=== PATIENT | female | born 1965 | race Caucasian/White ===

== ENCOUNTER 2017-02-23 18:37 | Emergency (ER) | payer MEDICAID ==
[2017-02-23] MEDS ORDERED: Silver Sulfadiazine 1% Crm 50 GM Tube TOP ONE (18:38)
[2017-02-23] MEDS ORDERED: Acetaminophen/oxyCODONE 325-5 MG Tab PO ONE (18:38)
[2017-02-23] MEDS ORDERED: HYDROmorphone 2 MG/ML SDV IM ONE (18:44)
[2017-02-23] MEDS ORDERED: Sodium Chloride 0.9% 10 ML Syringe FLUSH PRN (18:53)
[2017-02-23] MEDS ORDERED: HYDROmorphone 2 MG/ML SDV IVPUSH ONE ×2 (18:55→19:25)
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
[2017-02-23] MEDS ORDERED: Acetaminophen/oxyCODONE 325-5 MG Tab PO PRN (19:50)
== END 2017-02-23 20:30 | disposition home or self-care (01) ==
LOC: FB.ED 18:37
DX: T23.232A Burn of second degree of multiple left fingers (nail), not including thumb, initial encounter (principal); T23.202A Burn of second degree of left hand, unspecified site, initial encounter; Z88.0 Allergy status to penicillin; X06.2XXA Exposure to ignition of other clothing and apparel, initial encounter
CPT/HCPCS: 16020; 96374; 96376; 99283; A9270; J1170; J7050

== ENCOUNTER 2019-10-14 07:17 | Day surgery (SDC) | payer MEDICAID ==
[~2019-10-14 07:17] MED LIST: Lactated Ringers 1,000 ML IV SCH; Sodium Chloride 0.9% 10 ML Syringe FLUSH PRN
[2019-10-14] MEDS ORDERED: Propofol 200 MG/20 ML SDV IV ONE (07:18)
[2019-10-14] MEDS ORDERED: Lidocaine 1% PF 2 ML SDV INJECT ONE (07:18)
--- NOTE | 2019-10-14 09:13 | PCM.OPNOTE ---
- General Post-Op/Procedure Note Date of Surgery/Procedure: 10/14/19 Operative Procedure(s): c scope with bx Findings: sigmoid diverticulosis sigmoid polyp and rectal polyps x4 Pre Op Diagnosis: screening Post-Op Diagnosis: diverticulosis. colon polyps Anesthesia Technique: MAC Primary Surgeon: Laith Gifford Anesthesia Provider: Molina Guidry Pathology: colon and rectal polyps Complications: None Condition: Good Free Text/Narrative:: see dictation
--- NOTE | 2019-10-15 04:25 | OR ---
DATE OF OPERATION: 10/14/2019 SURGEON: Laith Gifford MD PROCEDURE PERFORMED: Colonoscopy with cold forceps biopsy. PREOPERATIVE DIAGNOSIS: Screening for colon cancer. POSTOPERATIVE DIAGNOSES: Sigmoid diverticulosis, rectal polyps x4, and sigmoid colon polyp x1. INDICATIONS FOR PROCEDURE: This is a 54-year-old white female referred for initial screening colonoscopy. INTRAOPERATIVE FINDINGS: Are as follows: The sigmoid colon appeared to have a hyperplastic polyp. Rectal, 3 of the 4 polyps appeared to be hyperplastic with one appearing to be adenomatous. Sigmoid colon had some mild diverticulosis. DESCRIPTION OF OPERATION: After an excellent IV sedation was administered, digital rectal exam was performed. No marked abnormality was noted. The flexible colonoscope was inserted and advanced to the cecum. Prep was excellent. The following findings were noted: Ascending colon, unremarkable. Transverse colon, unremarkable. Descending colon, unremarkable. Sigmoid, mild diverticulosis. Small hyperplastic-appearing lesion noted at the distal sigmoid colon, biopsied and obliterated with cold biopsy forceps. Rectum, mid rectum 3 hyperplastic-appearing polyps were encountered, these were biopsied with the cold biopsy forceps and submitted in 1 container, and approximately 3 mm distal to this point, there was a small 2 mm adenomatous-appearing polyp, which was also biopsied with cold biopsy forceps. The patient tolerated the procedure well, was taken to Recovery. Results will be sent to her via letter. /[id number] /MODL
== END 2019-10-14 09:54 | disposition home or self-care (01) ==
LOC: FB.SDS 07:17
PROVIDERS: ATTEND Surgery
DX: Z12.11 Encounter for screening for malignant neoplasm of colon (principal); K63.5 Polyp of colon; K62.1 Rectal polyp; K57.30 Diverticulosis of large intestine without perforation or abscess without bleeding; E03.9 Hypothyroidism, unspecified; Z79.899 Other long term (current) drug therapy; Z88.0 Allergy status to penicillin; Z90.49 Acquired absence of other specified parts of digestive tract
CPT/HCPCS: 88305; J2001; J2704; J7120

== ENCOUNTER 2020-11-02 18:20 | Emergency (ER) | payer MEDICAID ==
--- NOTE | 2020-11-02 18:40 | EDM.PDOC ---
ED HPI GENERAL MEDICAL PROBLEM - General Stated Complaint: RIGHT FLANK PAIN Time Seen by Provider: 11/02/20 18:39 Source of Information: Reports: Patient History Limitations: Reports: No Limitations - History of Present Illness INITIAL COMMENTS - FREE TEXT/NARRATIVE: 55-year-old female who reports onset of right upper quadrant and right flank abdominal pain 5 days ago. It was a sharp and stabbing type pain but it was intermittent and then it would come and last for a period of time and then go away. It did not seem to be brought on by anything and it did not seem to be made better or worse by eating. She had no nausea or vomiting associated with it. She had no dysuria or hematuria. Beginning approximately 24 hours ago she reports that the pain has been constant and it has been worsening with time. She also reports that she has lost her appetite and when she tried to eat this morning she felt very nauseated and did not eat. She has been able to drink liquids well. She is currently rating her pain as a 10/10. It is worse when she is sitting up and nothing really seems to make the pain better anymore. Pain remains a sharp and stabbing type pain. She has been having intermittent sweating but no measured fever and no chills. No trauma. There are no other associated signs or symptoms. There are no other modifying factors. Onset: Other (5 days ago and worse over the past 24 hours.) Duration: Getting Worse Location: Reports: Abdomen, Other (Right upper flank) Quality: Reports: Sharp, Stabbing Severity: Severe Improves with: Reports: None Worsens with: Reports: Other (Sitting up. Palpation.), Movement Context: Reports: Other (Above.) Associated Symptoms: Reports: No Other Symptoms (Except as above) Treatments SOLE LAYER: Reports: Other (see below) - Related Data Allergies Allergy/AdvReac Type Severity Reaction Status Date / Time Penicillins Allergy Anaphylactic Verified 10/14/19 07:59 Shock Home Meds: Home Meds Albuterol [Proventil HFA] 2 puff INH QID PRN 10/10/19 [History] Aspirin 81 mg PO DAILY 10/10/19 [History] Budesonide/Formoterol [Symbicort 160-4.5 MCG] 2 puff INH BID 10/10/19 [History] Escitalopram Oxalate [Lexapro] 20 mg PO DAILY 10/10/19 [History] Famotidine [Pepcid] 10 mg PO BEDTIME 10/10/19 [History] Levothyroxine [Synthroid] 100 mcg PO ACBREAKFAST 10/10/19 [History] Losartan [Cozaar] 100 mg PO DAILY 10/10/19 [History] Metoprolol Succinate [Toprol Xl] 100 mg PO DAILY 10/10/19 [History] atorvaSTATin Calcium [Lipitor] 20 mg PO DAILY 10/10/19 [History] cloNIDine HCL [Catapres] 0.1 mg PO DAILY 10/10/19 [History] hydroCHLOROthiazide [Hydrochlorothiazide] 25 mg PO DAILY 10/10/19 [History] Past Medical History Cardiovascular History: Reports: Hypertension Respiratory History: Reports: Asthma Genitourinary History: Reports: Urinary Incontinence Other Genitourinary History: OAB Neurological History: Reports: TIA Psychiatric History: Reports: Anxiety, Depression Endocrine/Metabolic History: Reports: Hypothyroidism, Obesity/BMI 30+ Other Immunologic History: LEUKEMOID REACTION - Past Surgical History GI Surgical History: Reports: Appendectomy Female Surgical History: Reports: Section, Hysterectomy, Tubal Ligation Social & Family History - Family History Family Medical History: No Pertinent Family History - Tobacco Use Tobacco Use Status *Q: Current Every Day Tobacco User - Caffeine Use Caffeine Use: Reports: Coffee, Tea - Alcohol Use Alcohol Use History: Yes Alcohol Use Frequency: Socially - Living Situation & Occupation Living situation: Reports: Occupation: Employed (Works at [employer]) ED ROS GENERAL - Review of Systems Review Of Systems: See Below Constitutional: Reports: Diaphoresis. Denies: Fever, Chills HEENT: Denies: Throat Pain, Throat Swelling Respiratory: Denies: Shortness of Breath, Pleuritic Chest Pain, Cough Cardiovascular: Denies: Chest Pain, Palpitations Endocrine: Denies: Fatigue GI/Abdominal: Reports: Abdominal Pain (Right upper quadrant), Nausea (Intermittently). Denies: Diarrhea, Vomiting : Reports: Flank Pain (On right upper). Denies: Dysuria, Hematuria Musculoskeletal: Denies: Back Pain, Leg Pain Skin: Reports: Diaphoresis. Denies: Rash Neurological: Denies: Confusion, Dizziness Hematologic/Lymphatic: Denies: Easy Bleeding, Easy Bruising ED EXAM, GI/ABD - Physical Exam Exam: See Below Exam Limited By: No Limitations General Appearance: Alert, WD/WN, Moderate Distress Eyes: Bilateral: Normal Appearance, EOMI Ears: Normal External Exam, Hearing Grossly Normal Nose: Normal Inspection, Normal Mucosa, No Blood Throat/Mouth: Normal Voice, No Airway Compromise, Other (Somewhat dry mucous membranes) Head: Atraumatic, Normocephalic Neck: Normal Inspection, Supple, Non-Tender, Full Range of Motion Respiratory/Chest: No Respiratory Distress, Lungs Clear, Normal Breath Sounds, No Accessory Muscle Use, Chest Non-Tender Cardiovascular: Normal Peripheral Pulses, Regular Rate, Rhythm, No Murmur GI/Abdominal Exam: Normal Bowel Sounds, Soft, Tender (In right upper quadrant and right flank) Back Exam: Normal Inspection, Full Range of Motion. No: CVA Tenderness (R), CVA Tenderness (L) Extremities: Normal Inspection, Normal Range of Motion, Non-Tender, No Pedal Edema, Normal Capillary Refill Neurological: Alert, Oriented, CN II-XII Intact, Normal Cognition, No Motor/Sensory Deficits Psychiatric: Normal Affect Skin Exam: Warm, Dry, Intact, Normal Color, No Rash Course - Orders/Labs/Meds Orders: Active Orders 24 hr Category Date Time Status CBC WITH AUTO DIFF [HEME] Stat Lab 11/02/20 18:40 Ordered COMPREHENSIVE METABOLIC PN,CMP [CHEM] Stat Lab 11/02/20 18:40 Ordered HCG QUALITATIVE,URINE [URCHEM] Stat Lab 11/02/20 18:40 Stop Req LIPASE [CHEM] Stat Lab 11/02/20 18:40 Ordered MAGNESIUM [CHEM] Stat Lab 11/02/20 18:41 Ordered Sodium Chloride 0.9% @ 150 MLS/HR (1000ml) Med 11/02/20 18:45 Ordered Sodium Chloride 0.9% [Normal Saline] 1,000 ml IV ASDIRECTED Sodium Chloride 0.9% [Normal Saline] 500 ml Med 11/02/20 18:41 Ordered IV .BOLUS Sodium Chloride 0.9% [Saline Flush] Med 11/02/20 18:40 Ordered 10 ml FLUSH ASDIRECTED PRN Peripheral IV Insertion Adult [OM.PC] Routine Oth 11/02/20 18:40 Ordered Medication Orders Sodium Chloride (Normal Saline) 1,000 mls @ 150 mls/hr IV ASDIRECTED NISHA Sodium Chloride (Normal Saline) 500 mls @ 999 mls/hr IV .BOLUS ONE Stop: 11/02/20 19:11 Sodium Chloride (Sodium Chloride 0.9% 10 Ml Syringe) 10 ml FLUSH ASDIRECTED PRN PRN Reason: Keep Vein Open Labs: Laboratory Tests 11/02/20 Range/Units 15:40 Urine Color Yellow (YELLOW) Urine Appearance Slightly cloudy (CLEAR) Urine pH 5.0 (5.0-6.5) Ur Specific [place] 1.020 (1.010-1.025) Urine Protein Negative (NEGATIVE) mg/dL Urine Glucose (UA) Normal (NORMAL) mg/dL Urine Ketones Negative (NEGATIVE) mg/dL Urine Occult Blood Moderate H (NEGATIVE) Urine Nitrite Negative (NEGATIVE) Urine Bilirubin Negative (NEGATIVE) Urine Urobilinogen Normal (NEGATIVE) mg/dL Ur Leukocyte Esterase Negative (NEGATIVE) Urine RBC 5-10 H (0-5) Urine WBC 0-5 (0-5) Ur Squamous Epith Cells Moderate H (NS,R,O) Urine Bacteria Few H (NS) Urine Mucus Few H (NS) Meds: Medications Generic Name Dose Route Start Last Admin Trade Name Freq PRN Reason Stop Dose Admin Sodium Chloride 1,000 mls @ 150 mls/hr 11/02/20 18:45 Normal Saline IV ASDIRECTED NISHA Sodium Chloride 500 mls @ 999 mls/hr 11/02/20 18:41 Normal Saline IV 11/02/20 19:11 .BOLUS ONE Sodium Chloride 10 ml 11/02/20 18:40 Sodium Chloride 0.9% 10 Ml Syringe FLUSH ASDIRECTED PRN Keep Vein Open Discontinued Medications Generic Name Dose Route Start Last Admin Trade Name Freq PRN Reason Stop Dose Admin Hydromorphone HCl 1 mg 11/02/20 18:42 Hydromorphone 2 Mg/Ml Sdv IVPUSH 11/02/20 18:43 ONETIME ONE Ondansetron HCl 4 mg 11/02/20 18:42 Ondansetron 4 Mg/2 Ml Sdv IVPUSH 11/02/20 18:43 ONETIME ONE - Re-Assessments/Exams Free Text/Narrative Re-Assessment/Exam: 11/02/20 19:15: I have ordered blood tests and urine tests. I have also ordered an IV to be established with normal saline to be given as a bolus and Dilaudid 1 mg and Zofran 4 mg to be given IV. Her laboratory tests are pending at this time. I will be turning the patient over to Dr. Heath at this time. Please see is note in regard to the patient's further clinical course and disposition. I have discussed this with the patient. Departure - Departure Time of Disposition: 19:15 Disposition: Still A Patient 30 Condition: Fair Clinical Impression: Flank pain Abdominal pain Qualifiers: Abdominal location: right upper quadrant Qualified Code(s): R10.11 - Right upper quadrant pain - Discharge Information - My Orders Last 24 Hours: My Active Orders 11/02/20 18:40 CBC WITH AUTO DIFF [HEME] Stat COMPREHENSIVE METABOLIC PN,CMP [CHEM] Stat HCG QUALITATIVE,URINE [URCHEM] Stat LIPASE [CHEM] Stat Sodium Chloride 0.9% [Saline Flush] 10 ml FLUSH ASDIRECTED PRN Peripheral IV Insertion Adult [OM.PC] Routine 11/02/20 18:41 MAGNESIUM [CHEM] Stat Sodium Chloride 0.9% [Normal Saline] 500 ml IV .BOLUS 11/02/20 18:45 Sodium Chloride 0.9% @ 150 MLS/HR (1000ml) Sodium Chloride 0.9% [Normal Saline] 1,000 ml IV ASDIRECTED - Assessment/Plan Last 24 Hours: My Active Orders 11/02/20 18:40 CBC WITH AUTO DIFF [HEME] Stat COMPREHENSIVE METABOLIC PN,CMP [CHEM] Stat HCG QUALITATIVE,URINE [URCHEM] Stat LIPASE [CHEM] Stat Sodium Chloride 0.9% [Saline Flush] 10 ml FLUSH ASDIRECTED PRN Peripheral IV Insertion Adult [OM.PC] Routine 11/02/20 18:41 MAGNESIUM [CHEM] Stat Sodium Chloride 0.9% [Normal Saline] 500 ml IV .BOLUS 11/02/20 18:45 Sodium Chloride 0.9% @ 150 MLS/HR (1000ml) Sodium Chloride 0.9% [Normal Saline] 1,000 ml IV ASDIRECTED
[2020-11-02] MEDS ORDERED: Sodium Chloride 0.9% 500 ML IV ONE (18:41)
[2020-11-02] MEDS ORDERED: Ondansetron 4 MG/2 ML SDV IVPUSH ONE (18:42)
[2020-11-02] MEDS ORDERED: HYDROmorphone 2 MG/ML SDV IVPUSH ONE (18:42)
[2020-11-02] MEDS ORDERED: Sodium Chloride 0.9% 1,000 ML IV SCH (18:45)
[2020-11-02] MEDS: Sodium Chloride 0.9% 10 ML Syringe FLUSH PRN ×2 (19:22→20:37)
[2020-11-02] MEDS ORDERED: Ketorolac 30 MG/ML SDV IVPUSH ONE (19:42)
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
[2020-11-02] MEDS ORDERED: cloNIDine 0.1 MG Tab PO ONE (20:30)
[2020-11-02] MEDS ORDERED: Labetalol 20 MG/4 ML Syringe IVPUSH ONE (20:30)
[2020-11-02] MEDS ORDERED: Magnesium Citrate Solution 296 ML Bottle PO ONE (21:19)
[2020-11-02] MEDS ORDERED: amLODIPine 5 MG Tab PO ONE (21:27)
== END 2020-11-02 21:50 | disposition home or self-care (01) ==
LOC: FB.ED 18:20
DX: R10.11 Right upper quadrant pain (principal); E03.9 Hypothyroidism, unspecified; E66.9 Obesity, unspecified; I10 Essential (primary) hypertension; Z79.82 Long term (current) use of aspirin; Z79.899 Other long term (current) drug therapy; Z88.0 Allergy status to penicillin; Z68.39 Body mass index [BMI] 39.0-39.9, adult; Z72.0 Tobacco use
CPT/HCPCS: 36415; 74176; 80053; 81001; 83690; 83735; 84484; 85025; 86140; 93005; 96374; 96375; 99284-25; A9270-GY; J1170; J1885; J2405; J3490; J7040

== ENCOUNTER 2023-07-20 15:35 | Emergency (ER) | payer MEDICAID ==
[2023-07-20 16:09] LABS: BILIRUBIN,URINE NEGATIVE (NEGATIVE); GLUCOSE,URINE NORMAL (NORMAL); KETONES,URINE NEGATIVE (NEGATIVE); LEUKOCYTE ESTERASE,URINE SMALL (NEGATIVE); NITRITE,URINE NEGATIVE (NEGATIVE); OCCULT BLOOD,URINE NEGATIVE (NEGATIVE); PROTEIN,URINE NEGATIVE (NEGATIVE); UROBILINOGEN,URINE NORMAL (NEGATIVE)
[2023-07-20 16:15] LABS: APPEARANCE,URINE CLEAR (CLEAR); BACTERIA,URINE MODERATE (NS); COLOR,URINE YELLOW (YELLOW); RBC,URINE 0-5 (0-5); SQUAMOUS EPITHELIAL CELLS,UR FEW (NS,R,O); WBC,URINE 0-5 (0-5)
[2023-07-20] MEDS: Ondansetron 4 MG Tab.DIS PO ONE (16:15)
== END 2023-07-20 17:20 | disposition home or self-care (01) ==
LOC: FB.ED 15:35
DX: N39.0 Urinary tract infection, site not specified (principal); J45.909 Unspecified asthma, uncomplicated; E03.9 Hypothyroidism, unspecified; I10 Essential (primary) hypertension; Z88.0 Allergy status to penicillin; Z79.82 Long term (current) use of aspirin; Z79.899 Other long term (current) drug therapy; Z79.51 Long term (current) use of inhaled steroids
CPT/HCPCS: 81001; 87086; 87088; 87186; 99283; Q0162

== ENCOUNTER 2023-08-12 03:57 | Emergency (ER) | payer MEDICAID ==
[2023-08-12] MEDS: amLODIPine 10 MG Tab PO STA (04:26)
[2023-08-12] MEDS: Acetaminophen 500 MG Tab PO ONE (05:17)
== END 2023-08-12 05:25 | disposition home or self-care (01) ==
LOC: FB.ED 03:57
DX: I10 Essential (primary) hypertension (principal); J45.909 Unspecified asthma, uncomplicated; E03.9 Hypothyroidism, unspecified; Z88.0 Allergy status to penicillin; Z79.51 Long term (current) use of inhaled steroids; Z79.82 Long term (current) use of aspirin; Z79.899 Other long term (current) drug therapy; Z86.73 Personal history of transient ischemic attack (TIA), and cerebral infarction without residual deficits; Z90.710 Acquired absence of both cervix and uterus
CPT/HCPCS: 99283; A9270-GY